=== PATIENT | male | born 1965 | race Caucasian/White ===

== ENCOUNTER 2020-08-18 16:25 | Emergency (ER) | payer MEDICAID ==
[~2020-08-18] VITALS: Ht 182.9 cm; Wt 102.9 kg
--- NOTE | 2020-08-18 17:15 | NUR ---
PT STATES HE HAS HIGH BLOOD PRESSURE NOT CURRENTLY ON MEDS, REPORTS FEELING HIS PULSE BEATING FAST. PT PLACED ON CARDIAC AND VITALS MONITORS.
[2020-08-18 17:28] LABS: BASOPHILS % (AUTO) 1 % (0-1); EOSINOPHILS % (AUTO) 2 % (1-7); LYMPHOCYTES % (AUTO) 15 % (22-44); MEAN CORPUSCULAR HEMOGLOBIN 32.6 pg (27.5-34.5); MEAN CORPUSCULAR HGB CONC 33.6 g/dL (33.2-36.2); MEAN PLATELET VOLUME 8.5 fL (7.4-10.4); MONOCYTES % (AUTO) 10 % (2-9); NEUTROPHILS % (AUTO) 72 % (42-75); PLATELET COUNT 252 x10^3/uL (130-400); RED BLOOD COUNT 4.86 x10^6/uL (4.38-5.82); RED CELL DISTRIBUTION WIDTH 13.5 % (9.4-14.8)
[2020-08-18 17:30] LABS: MD NO
[2020-08-18 17:36] LABS: ALBUMIN 3.5 g/dL (3.4-5.0); ANION GAP 4 mmol/L (5-15); CALCIUM 9.4 mg/dL (8.5-10.1); CHLORIDE 109 mmol/L (98-107); CREATININE 0.92 mg/dL (0.7-1.3)
[2020-08-18 17:46] LABS: TROPONIN I 0.027 ng/mL (0.000-0.045)
[2020-08-18 17:58] VITALS: BP 123/66
== END 2020-08-18 18:29 | disposition home or self-care (01) ==
LOC: ED 18:15
DX: R00.2 Palpitations (principal); I10 Essential (primary) hypertension; R00.0 Tachycardia, unspecified; R06.02 Shortness of breath; Z72.9 Problem related to lifestyle, unspecified
CPT/HCPCS: 36415; 71046; 80048; 82040; 84443; 84484; 85025; 93005; 99285